=== PATIENT | male | born 1975 | race Caucasian/White ===

== ENCOUNTER 2017-06-28 10:05 | Emergency (ER) | payer MEDICAID ==
[~2017-06-28] VITALS: Ht 182.9 cm; Wt 86.2 kg
--- NOTE | 2017-06-28 10:23 | NUR ---
Pt c/o CP, sternal area, can't describe nature, 04/01. Pt also c/o sore throat and cough x 2 days w/fever. Pt denies CP, SOB, dizziness, n/v, no other complaints, no distress noted. Pt placed on monitor, EKG -- given to .
--- NOTE | 2017-06-28 10:49 | NUR ---
Gave pt RX and d/c instructions, verbalized understanding.
== END 2017-06-28 10:50 | disposition home or self-care (01) ==
LOC: ER 10:05
DX: J40 Bronchitis, not specified as acute or chronic (principal)
CPT/HCPCS: 71010; 93005; A4663

== ENCOUNTER 2017-10-22 11:01 | Emergency (ER) | payer SELFPAY ==
[~2017-10-22] VITALS: Ht 182.9 cm; Wt 93.0 kg
--- NOTE | 2017-10-22 11:27 | NUR ---
Dr Woods at the bedside for MSE.
[2017-10-22] MEDS ORDERED: predniSONE 50 MG TABLET PO ONE (11:45)
[2017-10-22] MEDS ORDERED: FAMOTIDINE 20 MG TABLET PO ONE (11:45)
[2017-10-22] MEDS ORDERED: diphenhydrAMINE 25 MG CAP PO ONE ×2 (11:45→12:03)
[2017-10-22 11:50] VITALS: BP 131/88
--- NOTE | 2017-10-22 11:51 | NUR ---
Patient discharged to home in stable conditon. Written and verbal after care instructions given. Patient verbalizes understanding of instructions.
[2017-10-22] MEDS ORDERED: FAMOTIDINE 20 MG TABLET ONE (12:03)
[2017-10-22] MEDS ORDERED: predniSONE 50 MG TABLET ONE (12:04)
== END 2017-10-22 11:52 | disposition home or self-care (01) ==
LOC: ER 11:01
DX: L42 Pityriasis rosea (principal)
CPT/HCPCS: A4663; J7512; Q0163

== ENCOUNTER 2018-11-24 18:54 | Emergency (ER) | payer MEDICAID ==
[~2018-11-24] VITALS: Ht 182.9 cm; Wt 99.8 kg
--- NOTE | 2018-11-24 19:15 | NUR ---
Pt ambulates to ER with c/o N/V/D x 1 day. Denies chest pain/shortness of breath. Pt feels nauseous, no emesis, no diarrhea at this time. No acute distress noted.
--- NOTE | 2018-11-24 19:24 | NUR ---
Dr. Sonu ANNA MD at bedside for MSE.
[2018-11-24] MEDS ORDERED: BENZONATATE 100 MG CAPSULE PO ONE (19:30)
[2018-11-24] MEDS ORDERED: PANTOPRAZOLE SODIUM 40 MG VIAL IV ONE (19:30)
[2018-11-24] MEDS ORDERED: ONDANSETRON 4 MG/2 ML VIAL IV ONE ×2 (19:30→20:30)
[2018-11-24] MEDS ORDERED: ALBUTEROL SULFATE 2.5 MG/3 ML NEBU NEB ONE (19:30)
[2018-11-24] MEDS ORDERED: IV NORMAL SALINE 1000 ML BAG IV ONE ×2 (19:30→20:30)
[2018-11-24] MEDS ORDERED: BENZONATATE 100 MG CAPSULE ONE (19:42)
[2018-11-24] MEDS ORDERED: PANTOPRAZOLE SODIUM 40 MG VIAL ONE (19:42)
[2018-11-24] MEDS ORDERED: ONDANSETRON 4 MG/2 ML VIAL ONE ×2 (19:42→20:45)
[2018-11-24 19:44] LABS: BASOPHILS % (AUTO) 0.4 % (0.0-2.0); EOSINOPHILS # (AUTO) 0.1 K/uL (0.0-0.7); EOSINOPHILS % (AUTO) 1.1 % (0.0-7.0); HEMOGLOBIN 16.9 g/dL (12.5-16.3); LYMPHOCYTES # (AUTO) 0.9 K/uL (20.0-40.0); MEAN CORPUSCULAR HEMOGLOBIN 27.5 uug (23.8-33.4); MEAN CORPUSCULAR HGB CONC 35 g/dL (32.5-36.3); MEAN CORPUSCULAR VOLUME 79.8 fL (73.0-96.2); MONOCYTES # (AUTO) 0.4 K/uL (2.0-10.0); MONOCYTES % (AUTO) 5.7 % (0.0-11.0); NEUTROPHILS # (AUTO) 6.5 K/uL (1.8-8.9); NEUTROPHILS % (AUTO) 81.8 % (38.5-71.5); PLATELET COUNT (AUTO) 277 K/uL (152-348); RED BLOOD CELL COUNT(AUTO) 6.14 MIL/uL (4.06-5.63); WHITE BLOOD COUNT (AUTO) 7.9 K/uL (3.6-10.2)
[2018-11-24] MEDS ORDERED: ALBUTEROL SULFATE 2.5 MG/3 ML NEBU ONE (19:48)
[2018-11-24 19:51] LABS: CREATININE 1.2 mg/dL (0.6-1.3); POTASSIUM 3.7 mmol/L (3.5-5.1)
[2018-11-24 19:57] LABS: BILIRUBIN,DIRECT 0.2 mg/dL (0.0-0.2); TOTAL PROTEIN, SERUM 8.5 g/dL (6.4-8.2)
--- NOTE | 2018-11-24 19:58 | NUR ---
Pt states he feels better after breathing tx.
[2018-11-24 21:02] LABS: *BILIRUBIN,URIN NEGATIVE (NEGATIVE); *BLOOD, URINE NEGATIVE (NEGATIVE); *CLARITY,URINE SLIGHTLY CLOUDY (CLEAR); *COLOR,URINE YELLOW (YELLOW); *KETONES,URINE 2+ (NEGATIVE); *UROBILINOGEN,URINE 0.2 E.U./dl (NORMAL); LEUKOCYTE ESTERASE ,URINE NEGATIVE (NEGATIVE); NITRITE, URINE NEGATIVE (NEGATIVE); UGLUCOSE NEGATIVE (NEGATIVE)
[2018-11-24 21:30] LABS: BACTERIA,URINE NONE SEEN /HPF (NONE SEEN); RBC,URINE 0-3 /HPF (0-3); SQUAMOUS EPITHELIAL CELL,UR FEW /HPF (NONE SEEN); WBC,URINE 0-3 /HPF (0-3)
--- NOTE | 2018-11-24 21:38 | NUR ---
IV removed. Catheter intact and site benign. Pressure and 4x4 gauze applied to site. No bleeding noted.
--- NOTE | 2018-11-24 21:41 | NUR ---
Patient discharged to home in stable conditon. Written and verbal after care instructions given. Patient verbalizes understanding of instructions. Pt ambulated out of ER in steady gait. All belongings w pt. VSS. NAD noted. Pt states he feels better.
[2018-11-24 21:42] VITALS: BP 119/86
== END 2018-11-24 21:43 | disposition home or self-care (01) ==
LOC: ER 18:54
DX: A08.4 Viral intestinal infection, unspecified (principal); J20.8 Acute bronchitis due to other specified organisms; B97.89 Other viral agents as the cause of diseases classified elsewhere; F17.200 Nicotine dependence, unspecified, uncomplicated
CPT/HCPCS: 36415; 80048; 80076; 81001; 83690; 85025; 94640; 96361; 96374; 96375; 96376; 99283; C9113; J2405 ×2; A4663; J7030